=== PATIENT | female | born 1990 | race African-American/Black ===

== ENCOUNTER 2017-01-09 19:34 | Emergency (ER) | payer OTHER ==
[~2017-01-09] VITALS: Ht 160 cm; Wt 76.7 kg
[2017-01-09 22:12] VITALS: BP 124/82
== END 2017-01-09 22:17 | disposition home or self-care (01) ==
LOC: ER 19:34
DX: S51.812A Laceration without foreign body of left forearm, initial encounter (principal); W25.XXXA Contact with sharp glass, initial encounter; Y93.89 Activity, other specified; Y92.89 Other specified places as the place of occurrence of the external cause; Y99.8 Other external cause status